=== PATIENT | female | born 1990 | race African-American/Black ===

== ENCOUNTER 2022-05-31 10:01 | Emergency (ER) | payer OTHER ==
[~2022-05-31] VITALS: Ht 167.6 cm; Wt 59.0 kg
[2022-05-31 10:10] VITALS: BP 127/88
--- NOTE | 2022-05-31 10:10 | NUR ---
PT BIB [employer] ESCORTED BY OFFICER MARTIN #[id number] FOR COVID TEST.
--- NOTE | 2022-05-31 10:17 | NUR ---
COVID SWAB COLLECTED AND SENT TO LAB
--- NOTE | 2022-05-31 11:13 | NUR ---
Patient discharged in [employer] custody- stable condition. Written and verbal after care instructions given. Patient verbalizes understanding of instruction.
--- NOTE | 2022-05-31 11:14 | NUR ---
Lennox arrington in ED - 05/31/22 at 1115 by TU Patient discharged to [employer] enforcement in stable condition. Written and verbal after care instructions given. Patient verbalizes understanding of instruction.
== END 2022-05-31 11:15 ==
LOC: ER 10:10
DX: Z20.822 Contact with and (suspected) exposure to COVID-19 (principal)
CPT/HCPCS: 99283; 87426; C9803